=== PATIENT | female | born 1975 | race Caucasian/White ===

== ENCOUNTER 2016-02-29 18:54 | Emergency (ER) | payer OTHER ==
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
--- NOTE | 2016-02-29 20:32 | ED CLINICAL REPORT ---
Clinical Report - Physicians/Mid Levels [facility] [address] [place] [address] 02/29/2016 18:54 Patient: SUMI THIBODEAUX Time Seen: 21:00 Feb 29 2016. Arrived- By private vehicle. Historian- patient. HISTORY OF PRESENT ILLNESS Chief Complaint: BACK PAIN. It is described as being mild and in the area of the lower lumbar spine. The quality is noted to be "pain" and similar to prior episodes. Onset- years and it is still present. No bowel dysfunction or sensory loss. Additional history - reports h;o chronic pain, [facility] closed, has not established new pcp, out of meds 11 days, sx are not new. no new injury. Patient denies an injury. REVIEW OF SYSTEMS No fever, chills, difficulty with urination, urinary frequency or hematuria. No sore throat or difficulty breathing. All systems otherwise negative, except as recorded above. PAST HISTORY Problems: Carpal Tunnel Syndrome. Viral Disease. Abdominal Pain. Immunizations. LNMP - Last Normal Menstrual Period. Asthma. Mood Disorder. Depression. Back Pain. Additional Surgeries: Hysterectomy. Left hand surgery . Tonsillectomy. Tympanostomy Tubes. Medications: Valium Oral. Albuterol Sulfate HFA Inhalation. TraZODone HCl Oral. RisperDAL Oral. BusPIRone HCl Oral. DULoxetine HCl Oral. Allergies: Hydrocodone. SOCIAL HISTORY Smoker- current status unknown. History of drug use: marijuana. ADDITIONAL NOTES The nursing notes have been reviewed. PHYSICAL EXAM Vital Signs: 02/29/2016 19:45 BP: 114/75. HR: 88. RR: 16. O2 saturation: 98%. Temp: 98.8 F. Appearance: Alert. No acute distress. HEENT: Normal external inspection. Neck: Normal inspection. Neck nontender. CVS: Heart sounds normal. Respiratory: No respiratory distress. No respiratory distress. Breath sounds normal. No rales. Abdomen: No visible injury. Soft. Bowel sounds normal. No rebound tenderness. The bowel sounds are not abnormal. Back: Normal inspection. No tenderness. Painless ROM. Vertebral point tenderness. Skin: Skin warm. Normal skin color. Extremities: Extremities exhibit normal ROM. No lower extremity edema. Extremities nontender. No calf tenderness. Neuro: Oriented X 3. PROGRESS AND PROCEDURES Course of Care: There are no risks for spinal epidural abscess or hematoma as patient is without any risk factors such as IVDA or evidence of active infection, no midline tenderness to percussion. Hence I do not feel emergent imaging with an MRI is indicated. However I did discuss with the patient that if these symptoms develop, or if the pain does not resolve an MRI may need to be done outpatient, or in the ED if symptoms worsen acutely or new onset of the above mentioned symptoms develop. Patient is stable. Symptoms better. Patient/family counseled. Disposition: Discharged. CLINICAL IMPRESSION Chronic lumbar back pain. INSTRUCTIONS ([address], [place] [address] < 1 mi ). Prescription Medications: Percocet 5 mg/325 mg: take 1 tablet orally every 6 hours as needed for pain. Dispense twenty (20). No refill. Substitution is permissible. Follow-up: Follow up with doctor call [facility]. (Electronically signed by Archana Pulliam P.A.-C 02/29/2016 21:03)
--- NOTE | 2016-02-29 20:32 | ED ORDER SUMMARY ---
..... Patient: SUMI THIBODEAUX [facility] VisitID: [id number] [address] [place] [address] 40y, F Registration Date/Time: 02/29/2016 ORDER SHEET Weight: 48.5 kg (stated) Allergies: Hydrocodone GENERAL ORDERS: MEDICATION ORDERS: Percocet PO 5/325 mg (HIGH ALERT MEDICATION, NOW) (19:51 02/29/2016 Jyoti P.A.-Ayush) (Ack 20:06 Sabinoivesuellen R.N.) (20:08 TierneyQuivey R.N.) IV FLUIDS: ORDER SHEET NOTES: [Electronically signed by Vanda Taylor R.N. (20:40 02/29/2016)] [Electronically signed by Archana Pulliam P.A.-C (21:03 02/29/2016)] [Electronically locked/signed by Vanda Taylor R.N. (20:40 02/29/2016)]
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
--- NOTE | 2016-02-29 20:32 | ED CLINICAL REPORT ---
Clinical Report - Physicians/Mid Levels [facility] [address] [place] [address] 02/29/2016 18:54 Patient: SUMI THIBODEAUX Time Seen: 21:00 Feb 29 2016. Arrived- By private vehicle. Historian- patient. HISTORY OF PRESENT ILLNESS Chief Complaint: BACK PAIN. It is described as being mild and in the area of the lower lumbar spine. The quality is noted to be "pain" and similar to prior episodes. Onset- years and it is still present. No bowel dysfunction or sensory loss. Additional history - reports h;o chronic pain, [facility] closed, has not established new pcp, out of meds 11 days, sx are not new. no new injury. Patient denies an injury. REVIEW OF SYSTEMS No fever, chills, difficulty with urination, urinary frequency or hematuria. No sore throat or difficulty breathing. All systems otherwise negative, except as recorded above. PAST HISTORY Problems: Carpal Tunnel Syndrome. Viral Disease. Abdominal Pain. Immunizations. LNMP - Last Normal Menstrual Period. Asthma. Mood Disorder. Depression. Back Pain. Additional Surgeries: Hysterectomy. Left hand surgery . Tonsillectomy. Tympanostomy Tubes. Medications: Valium Oral. Albuterol Sulfate HFA Inhalation. TraZODone HCl Oral. RisperDAL Oral. BusPIRone HCl Oral. DULoxetine HCl Oral. Allergies: Hydrocodone. SOCIAL HISTORY Smoker- current status unknown. History of drug use: marijuana. ADDITIONAL NOTES The nursing notes have been reviewed. PHYSICAL EXAM Vital Signs: 02/29/2016 19:45 BP: 114/75. HR: 88. RR: 16. O2 saturation: 98%. Temp: 98.8 F. Appearance: Alert. No acute distress. HEENT: Normal external inspection. Neck: Normal inspection. Neck nontender. CVS: Heart sounds normal. Respiratory: No respiratory distress. No respiratory distress. Breath sounds normal. No rales. Abdomen: No visible injury. Soft. Bowel sounds normal. No rebound tenderness. The bowel sounds are not abnormal. Back: Normal inspection. No tenderness. Painless ROM. Vertebral point tenderness. Skin: Skin warm. Normal skin color. Extremities: Extremities exhibit normal ROM. No lower extremity edema. Extremities nontender. No calf tenderness. Neuro: Oriented X 3. PROGRESS AND PROCEDURES Course of Care: There are no risks for spinal epidural abscess or hematoma as patient is without any risk factors such as IVDA or evidence of active infection, no midline tenderness to percussion. Hence I do not feel emergent imaging with an MRI is indicated. However I did discuss with the patient that if these symptoms develop, or if the pain does not resolve an MRI may need to be done outpatient, or in the ED if symptoms worsen acutely or new onset of the above mentioned symptoms develop. Patient is stable. Symptoms better. Patient/family counseled. Disposition: Discharged. CLINICAL IMPRESSION Chronic lumbar back pain. INSTRUCTIONS ([address], [place] [address] < 1 mi ). Prescription Medications: Percocet 5 mg/325 mg: take 1 tablet orally every 6 hours as needed for pain. Dispense twenty (20). No refill. Substitution is permissible. Follow-up: Follow up with doctor call [facility]. (Electronically signed by Archana Pulliam P.A.-C 02/29/2016 21:03)
--- NOTE | 2016-02-29 20:32 | ED ORDER SUMMARY ---
..... Patient: SUMI THIBODEAUX OrderSheet [facility] VisitID: [id number] [address] [place] [address] 40y, F Registration Date/Time: 02/29/2016 ORDER SHEET Weight: 48.5 kg (stated) Allergies: Hydrocodone GENERAL ORDERS: MEDICATION ORDERS: Percocet PO 5/325 mg (HIGH ALERT MEDICATION, NOW) (19:51 02/29/2016 Jyoti P.A.-Ayush) (Ack 20:06 Sabinoivesuellen R.N.) (20:08 TierneyQuivey R.N.) IV FLUIDS: ORDER SHEET NOTES: [Electronically signed by Vanda Taylor R.N. (20:40 02/29/2016)] [Electronically signed by Archana Pulliam P.A.-C (21:03 02/29/2016)] [Electronically locked/signed by Vanda Taylor R.N. (20:40 02/29/2016)]
--- NOTE | 2016-02-29 21:04 | ED MED RECONCILIATION SUMMARY ---
Patient: SUMI THIBODEAUX Medication Reconciliation Report [facility] VisitID: [id number] [address] [place] [address] 40y, F Registration Date/Time: 02/29/2016 Weight: 48.5 kg Height/Length: 61 in. BMI: 20.2 ALLERGIES: Hydrocodone The patient's Home Medications are listed below: THE FOLLOWING MEDICATIONS NEED TO BE RECONCILED: Albuterol Sulfate HFA Inhalation BusPIRone HCl Oral DULoxetine HCl Oral RisperDAL Oral TraZODone HCl Oral Valium Oral The source(s) of the original Home Medication information: patient The following Medications were given to the patient in the Emergency Department: Percocet [PO] PO 1 tab, administered: 02/29/2016 8:08:00 PM The following Medications were prescribed to the patient: Percocet 5 mg/325 mg: take 1 tablet orally every 6 hours as needed for pain. Dispense twenty (20). No refill. Substitution is permissible. -- Archana Pulliam, PLydiaALydia-C
--- NOTE | 2016-02-29 21:04 | ED MED RECONCILIATION SUMMARY ---
Patient: SUMI THIBODEAUX Medication Reconciliation Report [facility] VisitID: [id number] [address] [place] [address] 40y, F Registration Date/Time: 02/29/2016 Weight: 48.5 kg Height/Length: 61 in. BMI: 20.2 ALLERGIES: Hydrocodone The patient's Home Medications are listed below: THE FOLLOWING MEDICATIONS NEED TO BE RECONCILED: Albuterol Sulfate HFA Inhalation BusPIRone HCl Oral DULoxetine HCl Oral RisperDAL Oral TraZODone HCl Oral Valium Oral The source(s) of the original Home Medication information: patient The following Medications were given to the patient in the Emergency Department: Percocet [PO] PO 1 tab, administered: 02/29/2016 8:08:00 PM The following Medications were prescribed to the patient: Percocet 5 mg/325 mg: take 1 tablet orally every 6 hours as needed for pain. Dispense twenty (20). No refill. Substitution is permissible. -- Archana Pulliam, PLydiaALydia-C
--- NOTE | 2016-02-29 21:04 | ED DISCHARGE INSTRUCTIONS ---
Patient: SUMI THIBODEAUX General Instructions [facility] VisitID: [id number] [address] [place] [address] 40y, F Registration Date/Time: 02/29/2016 Chronic lumbar back pain. INSTRUCTIONS ([address] [place] [address] < 1 mi ). Prescription Medications: Percocet 5 mg/325 mg: take 1 tablet orally every 6 hours as needed for pain. Dispense twenty (20). No refill. Substitution is permissible. Follow-up: Follow up with doctor call [facility]. ADDITIONAL INFORMATION Back Pain [Acute Or Chronic] Back pain is usually caused by an injury to the muscles or ligaments of the spine. Sometimes the disks that separate each bone in the spine may bulge and cause pain by pressing on a nearby nerve. Back pain may also appear after a sudden twisting/bending force (such as in a car accident), after a simple awkward movement, or lifting something heavy with poor body positioning. In either case, muscle spasm is often present and adds to the pain. Acute back pain usually gets better in one to two weeks. Back pain related to disk disease, arthritis in the spinal joints or spinal stenosis (narrowing of the spinal canal) can become chronic and last for months or years. Unless you had a physical injury (for example, a car accident or fall) X-rays are usually not ordered for the initial evaluation of back pain. If pain continues and does not respond to medical treatment, x-rays and other tests may be performed at a later time. Home Care: You may need to stay in bed the first few days. But, as soon as possible, begin sitting or walking to avoid problems with prolonged bed rest (muscle weakness, worsening back stiffness and pain, blood clots in the legs). When in bed, try to find a position of comfort. A firm mattress is best. Try lying flat on your back with pillows under your knees. You can also try lying on your side with your knees bent up towards your chest and a pillow between your knees. Avoid prolonged sitting. This puts more stress on the lower back than standing or walking. During the first two days after injury, apply an ICE PACK to the painful area for 20 minutes every 2-4 hours. This will reduce swelling and pain. HEAT (hot shower, hot bath or heating pad) works well for muscle spasm. You can start with ice, then switch to heat after two days. Some patients feel best alternating ice and heat treatments. Use the one method that feels the best to you. You may use acetaminophen (Tylenol) or ibuprofen (Motrin, Advil) to control pain, unless another pain medicine was prescribed. [NOTE: If you have chronic liver or kidney disease or ever had a stomach ulcer or GI bleeding, talk with your doctor before using these medicines.] Be aware of safe lifting methods and do not lift anything over 15 pounds until all the pain is gone. Follow Up with your doctor or this facility if your symptoms do not start to improve after one week. Physical therapy may be needed. [NOTE: If X-rays were taken, they will be reviewed by a radiologist. You will be notified of any new findings that may affect your care.] Get Prompt Medical Attention if any of the following occur: Pain becomes worse or spreads to your legs Weakness or numbness in one or both legs Loss of bowel or bladder control Numbness in the groin or genital area Oxycodone Hydrochloride, Acetaminophen Oral tablet What is this medicine? ACETAMINOPHEN; OXYCODONE (a set a THEODORE rashad fen; ox i KOE done) is a pain reliever. It is used to treat mild to moderate pain. How should I use this medicine? Take this medicine by mouth with a full glass of water. Follow the directions on the prescription label. Take your medicine at regular intervals. Do not take your medicine more often than directed. Talk to your irrigation laborer regarding the use of this medicine in children. Special care may be needed. Patients over 65 years old may have a stronger reaction and need a smaller dose. What side effects may I notice from receiving this medicine? Side effects that you should report to your doctor or health critical care specialist as soon as possible: allergic reactions like skin rash, itching or hives, swelling of the face, lips, or tongue breathing difficulties, wheezing confusion light headedness or fainting spells severe stomach pain yellowing of the skin or the whites of the eyes Side effects that usually do not require medical attention (report to your doctor or health critical care specialist if they continue or are bothersome): dizziness drowsiness nausea vomiting What may interact with this medicine? alcohol antihistamines barbiturates like amobarbital, butalbital, butabarbital, methohexital, pentobarbital, phenobarbital, thiopental, and secobarbital benztropine drugs for bladder problems like solifenacin, trospium, oxybutynin, tolterodine, hyoscyamine, and methscopolamine drugs for breathing problems like ipratropium and tiotropium drugs for certain stomach or intestine problems like propantheline, homatropine methylbromide, glycopyrrolate, atropine, belladonna, and dicyclomine general anesthetics like etomidate, ketamine, nitrous oxide, propofol, desflurane, enflurane, halothane, isoflurane, and sevoflurane medicines for depression, anxiety, or psychotic disturbances medicines for sleep muscle relaxants naltrexone narcotic medicines (opiates) for pain phenothiazines like perphenazine, thioridazine, chlorpromazine, mesoridazine, fluphenazine, prochlorperazine, promazine, and trifluoperazine scopolamine tramadol trihexyphenidyl What if I miss a dose? If you miss a dose, take it as soon as you can. If it is almost time for your next dose, take only that dose. Do not take double or extra doses. Where should I keep my medicine? Keep out of the reach of children. This medicine can be abused. Keep your medicine in a safe place to protect it from theft. Do not share this medicine with anyone. Selling or giving away this medicine is dangerous and against the law. Store at room temperature between 20 and 25 degrees C (68 and 77 degrees F). Keep container tightly closed. Protect from light. This medicine may cause accidental overdose and if it is taken by other adults, children, or pets. Flush any unused medicine down the toilet to reduce the chance of harm. Do not use the medicine after the expiration date. What should I tell my health care provider before I take this medicine? They need to know if you have any of these conditions: brain tumor Crohn's disease, inflammatory bowel disease, or ulcerative colitis drink more than 3 alcohol containing drinks per day drug abuse or addiction head injury heart or circulation problems kidney disease or problems going to the bathroom liver disease lung disease, asthma, or breathing problems an unusual or allergic reaction to acetaminophen, oxycodone, other opioid analgesics, other medicines, foods, dyes, or preservatives or trying to get breast-feeding What should I watch for while using this medicine? Tell your doctor or health critical care specialist if your pain does not go away, if it gets worse, or if you have new or a different type of pain. You may develop tolerance to the medicine. Tolerance means that you will need a higher dose of the medication for pain relief. Tolerance is normal and is expected if you take this medicine for a long time. Do not suddenly stop taking your medicine because you may develop a severe reaction. Your body becomes used to the medicine. This does NOT mean you are addicted. Addiction is a behavior related to getting and using a drug for a non-medical reason. If you have pain, you have a medical reason to take pain medicine. Your doctor will tell you how much medicine to take. If your doctor wants you to stop the medicine, the dose will be slowly lowered over time to avoid any side effects. You may get drowsy or dizzy. Do not drive, use machinery, or do anything that needs mental alertness until you know how this medicine affects you. Do not stand or sit up quickly, especially if you are an older patient. This reduces the risk of dizzy or fainting spells. Alcohol may interfere with the effect of this medicine. Avoid alcoholic drinks. There are different types of narcotic medicines (opiates) for pain. If you take more than one type at the same time, you may have more side effects. Give your health care provider a list of all medicines you use. Your doctor will tell you how much medicine to take. Do not take more medicine than directed. Call emergency for help if you have problems breathing. The medicine will cause constipation. Try to have a bowel movement at least every 2 to 3 days. If you do not have a bowel movement for 3 days, call your doctor or health critical care specialist. Do not take Tylenol (acetaminophen) or medicines that have acetaminophen with this medicine. Too much acetaminophen can be very dangerous. Many nonprescription medicines contain acetaminophen. Always read the labels carefully to avoid taking more acetaminophen. You have been given the following additional information: Back Pain (Acute Or Chronic) Oxycodone Hydrochloride, Acetaminophen Oral tablet (Electronically signed by Archana Pulliam P.A.-C 02/29/2016 21:03)
--- NOTE | 2016-02-29 21:04 | ED DISCHARGE INSTRUCTIONS ---
Patient: SUMI THIBODEAUX General Instructions [facility] VisitID: [id number] [address] [place] [address] 40y, F Registration Date/Time: 02/29/2016 Chronic lumbar back pain. INSTRUCTIONS ([address] [place] [address] < 1 mi ). Prescription Medications: Percocet 5 mg/325 mg: take 1 tablet orally every 6 hours as needed for pain. Dispense twenty (20). No refill. Substitution is permissible. Follow-up: Follow up with doctor call [facility]. ADDITIONAL INFORMATION Back Pain [Acute Or Chronic] Back pain is usually caused by an injury to the muscles or ligaments of the spine. Sometimes the disks that separate each bone in the spine may bulge and cause pain by pressing on a nearby nerve. Back pain may also appear after a sudden twisting/bending force (such as in a car accident), after a simple awkward movement, or lifting something heavy with poor body positioning. In either case, muscle spasm is often present and adds to the pain. Acute back pain usually gets better in one to two weeks. Back pain related to disk disease, arthritis in the spinal joints or spinal stenosis (narrowing of the spinal canal) can become chronic and last for months or years. Unless you had a physical injury (for example, a car accident or fall) X-rays are usually not ordered for the initial evaluation of back pain. If pain continues and does not respond to medical treatment, x-rays and other tests may be performed at a later time. Home Care: You may need to stay in bed the first few days. But, as soon as possible, begin sitting or walking to avoid problems with prolonged bed rest (muscle weakness, worsening back stiffness and pain, blood clots in the legs). When in bed, try to find a position of comfort. A firm mattress is best. Try lying flat on your back with pillows under your knees. You can also try lying on your side with your knees bent up towards your chest and a pillow between your knees. Avoid prolonged sitting. This puts more stress on the lower back than standing or walking. During the first two days after injury, apply an ICE PACK to the painful area for 20 minutes every 2-4 hours. This will reduce swelling and pain. HEAT (hot shower, hot bath or heating pad) works well for muscle spasm. You can start with ice, then switch to heat after two days. Some patients feel best alternating ice and heat treatments. Use the one method that feels the best to you. You may use acetaminophen (Tylenol) or ibuprofen (Motrin, Advil) to control pain, unless another pain medicine was prescribed. [NOTE: If you have chronic liver or kidney disease or ever had a stomach ulcer or GI bleeding, talk with your doctor before using these medicines.] Be aware of safe lifting methods and do not lift anything over 15 pounds until all the pain is gone. Follow Up with your doctor or this facility if your symptoms do not start to improve after one week. Physical therapy may be needed. [NOTE: If X-rays were taken, they will be reviewed by a radiologist. You will be notified of any new findings that may affect your care.] Get Prompt Medical Attention if any of the following occur: Pain becomes worse or spreads to your legs Weakness or numbness in one or both legs Loss of bowel or bladder control Numbness in the groin or genital area Oxycodone Hydrochloride, Acetaminophen Oral tablet What is this medicine? ACETAMINOPHEN; OXYCODONE (a set a THEODORE rashad fen; ox i KOE done) is a pain reliever. It is used to treat mild to moderate pain. How should I use this medicine? Take this medicine by mouth with a full glass of water. Follow the directions on the prescription label. Take your medicine at regular intervals. Do not take your medicine more often than directed. Talk to your security intern regarding the use of this medicine in children. Special care may be needed. Patients over 65 years old may have a stronger reaction and need a smaller dose. What side effects may I notice from receiving this medicine? Side effects that you should report to your doctor or health farm or ranch animal caretaker as soon as possible: allergic reactions like skin rash, itching or hives, swelling of the face, lips, or tongue breathing difficulties, wheezing confusion light headedness or fainting spells severe stomach pain yellowing of the skin or the whites of the eyes Side effects that usually do not require medical attention (report to your doctor or health farm or ranch animal caretaker if they continue or are bothersome): dizziness drowsiness nausea vomiting What may interact with this medicine? alcohol antihistamines barbiturates like amobarbital, butalbital, butabarbital, methohexital, pentobarbital, phenobarbital, thiopental, and secobarbital benztropine drugs for bladder problems like solifenacin, trospium, oxybutynin, tolterodine, hyoscyamine, and methscopolamine drugs for breathing problems like ipratropium and tiotropium drugs for certain stomach or intestine problems like propantheline, homatropine methylbromide, glycopyrrolate, atropine, belladonna, and dicyclomine general anesthetics like etomidate, ketamine, nitrous oxide, propofol, desflurane, enflurane, halothane, isoflurane, and sevoflurane medicines for depression, anxiety, or psychotic disturbances medicines for sleep muscle relaxants naltrexone narcotic medicines (opiates) for pain phenothiazines like perphenazine, thioridazine, chlorpromazine, mesoridazine, fluphenazine, prochlorperazine, promazine, and trifluoperazine scopolamine tramadol trihexyphenidyl What if I miss a dose? If you miss a dose, take it as soon as you can. If it is almost time for your next dose, take only that dose. Do not take double or extra doses. Where should I keep my medicine? Keep out of the reach of children. This medicine can be abused. Keep your medicine in a safe place to protect it from theft. Do not share this medicine with anyone. Selling or giving away this medicine is dangerous and against the law. Store at room temperature between 20 and 25 degrees C (68 and 77 degrees F). Keep container tightly closed. Protect from light. This medicine may cause accidental overdose and if it is taken by other adults, children, or pets. Flush any unused medicine down the toilet to reduce the chance of harm. Do not use the medicine after the expiration date. What should I tell my health care provider before I take this medicine? They need to know if you have any of these conditions: brain tumor Crohn's disease, inflammatory bowel disease, or ulcerative colitis drink more than 3 alcohol containing drinks per day drug abuse or addiction head injury heart or circulation problems kidney disease or problems going to the bathroom liver disease lung disease, asthma, or breathing problems an unusual or allergic reaction to acetaminophen, oxycodone, other opioid analgesics, other medicines, foods, dyes, or preservatives or trying to get breast-feeding What should I watch for while using this medicine? Tell your doctor or health farm or ranch animal caretaker if your pain does not go away, if it gets worse, or if you have new or a different type of pain. You may develop tolerance to the medicine. Tolerance means that you will need a higher dose of the medication for pain relief. Tolerance is normal and is expected if you take this medicine for a long time. Do not suddenly stop taking your medicine because you may develop a severe reaction. Your body becomes used to the medicine. This does NOT mean you are addicted. Addiction is a behavior related to getting and using a drug for a non-medical reason. If you have pain, you have a medical reason to take pain medicine. Your doctor will tell you how much medicine to take. If your doctor wants you to stop the medicine, the dose will be slowly lowered over time to avoid any side effects. You may get drowsy or dizzy. Do not drive, use machinery, or do anything that needs mental alertness until you know how this medicine affects you. Do not stand or sit up quickly, especially if you are an older patient. This reduces the risk of dizzy or fainting spells. Alcohol may interfere with the effect of this medicine. Avoid alcoholic drinks. There are different types of narcotic medicines (opiates) for pain. If you take more than one type at the same time, you may have more side effects. Give your health care provider a list of all medicines you use. Your doctor will tell you how much medicine to take. Do not take more medicine than directed. Call emergency for help if you have problems breathing. The medicine will cause constipation. Try to have a bowel movement at least every 2 to 3 days. If you do not have a bowel movement for 3 days, call your doctor or health farm or ranch animal caretaker. Do not take Tylenol (acetaminophen) or medicines that have acetaminophen with this medicine. Too much acetaminophen can be very dangerous. Many nonprescription medicines contain acetaminophen. Always read the labels carefully to avoid taking more acetaminophen. You have been given the following additional information: Back Pain (Acute Or Chronic) Oxycodone Hydrochloride, Acetaminophen Oral tablet (Electronically signed by Archana Pulliam P.A.-C 02/29/2016 21:03)
--- NOTE | 2016-02-29 21:04 | ED MAR SUMMARY ---
..... Medication Administration Record [facility] [address] [place] [address] Patient: SUMI THIBODEAUX Visit ID: [id number] 40y, F Weight: 48.5 kg Height/Length: 61 in BMI: 20.2 ALLERGIES: Hydrocodone Given 20:08 02/29/2016 Abel Armando R.N. Medication Administered: PERCOCET [PO] (OXYCODONE-ACETAMINOPHEN), Dose: 1 tab 5/325 mg Tablets PO. Medication Ordered: Percocet PO 5/325 mg (HIGH ALERT MEDICATION, NOW).
--- NOTE | 2016-02-29 21:04 | ED MAR SUMMARY ---
..... Medication Administration Record [facility] [address] [place] [address] Patient: SUMI THIBODEAUX Visit ID: [id number] 40y, F Weight: 48.5 kg Height/Length: 61 in BMI: 20.2 ALLERGIES: Hydrocodone Given 20:08 02/29/2016 Abel Armando R.N. Medication Administered: PERCOCET [PO] (OXYCODONE-ACETAMINOPHEN), Dose: 1 tab 5/325 mg Tablets PO. Medication Ordered: Percocet PO 5/325 mg (HIGH ALERT MEDICATION, NOW).
== END 2016-02-29 20:40 | disposition home or self-care (01) ==
LOC: ED SRH 18:54
DX: M54.5 Low back pain (principal); G89.29 Other chronic pain; J45.909 Unspecified asthma, uncomplicated; Z79.52 Long term (current) use of systemic steroids; Z88.5 Allergy status to narcotic agent

== ENCOUNTER → 2016-04-14 | Emergency (ER) | payer OTHER ==
--- NOTE | 2016-04-14 17:49 | ED ORDER SUMMARY ---
..... Patient: SUMI THIBODEAUX OrderSheet [facility] VisitID: [id number] [address] [place] [address] 41y, F Registration Date/Time: 04/14/2016 ORDER SHEET Weight: 52.1 kg (stated) Allergies: Hydrocodone GENERAL ORDERS: UA-Culture if indicated Urgent (16:39 04/14/2016 David ELLSWORTH) (Ack 16:42 LTapper) (17:14 LWhalen R.N.) Urine Drug Screen Urgent (16:39 04/14/2016 David ELLSWORTH) (Ack 16:42 LTapper) (17:14 LWhalen R.N.) MEDICATION ORDERS: Toradol IM 60 mg (NOW) (16:58 04/14/2016 David ELLSWORTH) (17:32 LWhalen R.N.) Tramadol PO 50 mg (NOW) (16:58 04/14/2016 David ELLSWORTH) (17:33 LWhalen R.N.) Soma PO 350 mg (NOW) (16:58 04/14/2016 David ELLSWORTH) (17:32 LWhalen R.N.) IV FLUIDS: ORDER SHEET NOTES: [Electronically signed by Noris Caraballo R.N. (18:05 04/14/2016)] [Electronically signed by Ashok Mccarthy MD (20:25 04/14/2016)] [Electronically locked/signed by Noris Caraballo R.N. (18:05 04/14/2016)]
--- NOTE | 2016-04-14 17:49 | ED NURSING NOTES ---
Clinical Report - Nurses [facility] [address] [place] [address] 04/14/2016 16:09 Patient: SUMI THIBODEAUX TRIAGE Triage time 16:28 Apr 14 2016. Acuity: LEVEL 3. Chief Complaint: BACK PAIN. YUVAL COMA SCORE: [place] Coma Scale: 15- eyes open spontaneously (4); best verbal response- oriented x 4 (5); best motor response- obeys commands (6). --16:35 Arnulfo Chinchilla R.N. 16:27 04/14/16. BP: 111/62. HR: 86. RR: 20. O2 saturation: 99%. Temp: 98.1 F. Pain level now 6/10. --16:35 Arnulfo Chinchilla R.N. Weight: 52.1 kg stated. Height/Length: 61 inches Per Patient. BMI: 21.7. --16:34 Arnulfo Chinchilla R.N. Medications BusPIRone HCl Oral. --16:31 Arnulfo Chinchilla R.N. Albuterol Sulfate HFA Inhalation. --16:31 Arnulfo Chinchilla R.N. Gabapentin Oral. --16:31 Arnulfo Chinchilla R.N. Asmanex 7 Metered Doses Inhalation. --16:32 Arnulfo Chinchilla R.N. Estridial patch. --16:32 Arnulfo Chinchilla R.N. Qvetiapine. --16:33 Arnulfo Chinchilla R.N. Allergies Hydrocodone. --16:31 Arnulfo Chinchilla R.N. History Arrived by private vehicle. Historian: patient. Accompanied by family. Primary physician (). Onset. (3 days). ( States has been having this problem for three days now. Has a long history of back pain but this is different per pt. Back feels tight like locked up and pains going down legs and aching hips.). She has had weakness (from pain). She has had mild trouble walking. The patient has been limping when trying to walk. No numbness, tingling, fever or extremity pain. 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 Took ibuprofen. PAST MEDICAL HX: Tetanus status: up-to-date. SOCIAL HX: Current every day light tobacco smoker (cigarette)- less than 1/2 a pack per day. History of drug use: marijuana. No alcohol use. SELF HARM ASSESSMENT: A self harm assessment was performed. The patient answered "no" to the question "Have you recently felt down, depressed, or hopeless?" and "Do you have thoughts of harming or killing yourself?". FALL RISK ASSESSMENT: Fall risk assessment completed. No fall risk identified. NUTRITIONAL RISK ASSESSMENT: The nutritional risk assessment revealed no deficiencies. FUNCTIONAL ASSESSMENT: Functional assessment: no impairments noted. LEARNING NEEDS ASSESSMENT: The learning needs assessment revealed no barriers. ABUSE ASSESSMENT: Abuse assessment: (yes) The patient was asked "Do you feel safe in your home?". SKIN INTEGRITY ASSESSMENT: Skin integrity risk assessment completed. No skin integrity risk identified. --16:35 Arnulfo Chinchilla R.N. PROBLEMS: Carpal Tunnel Syndrome. Viral Disease. Abdominal Pain. Immunizations. LNMP - Last Normal Menstrual Period. Asthma. Mood Disorder. Depression. Back Pain. --16:33 Arnulfo Chinchilla R.N. ADDITIONAL SURGERIES: Hysterectomy. Left hand surgery . Tonsillectomy. Tympanostomy Tubes. --16:33 Arnulfo Chinchilla R.N. Interventions ID band on patient. --16:35 Arnulfo Chinchilla R.N. PHYSICAL ASSESSMENT Ambulatory to room. GENERAL / NEURO / PSYCH: Alert. Oriented X 4. Appears in pain. RESPIRATORY: Respirations not labored. Chest nontender. Breath sounds within normal limits. CVS: Normal heart rate and rhythm. Capillary refill less than 2 seconds. GI / : Abdomen soft. Bowel sounds within normal limits. ( Last BM this am). EXTREMITIES: Sensation intact in extremities. ROM of extremities within normal limits. BACK: Normal inspection of the neck and back. --16:35 Arnulfo Chinchilla R.N. NURSING PROGRESS NOTES The plan of care for this patient has been created. Pulse oximeter and NIBP monitor placed on patient. Patient gowned. Reassurance given. Call light placed in reach. Side rails up x 1. Bed placed in lowest position. Brakes of bed on. --16:36 Arnulfo Chinchilla R.N. 17:32 04/14/2016 Toradol (Ketorolac Tromethamine) IM 60 mg given. Given in the right gluteus ryan and left gluteus ryan (split dose). Allergies verified and confirmed 5 rights. --17:32 Arnulfo Chinchilla R.N. 17:32 04/14/2016 Soma (Carisoprodol) PO Capsules 350 mg given. Allergies verified, confirmed 5 rights and sedative warning given to the patient. --17:32 Arnulfo Chinchilla R.N. 17:33 04/14/2016 Tramadol (TraMADol HCl) PO Capsules 50 mg given. Allergies verified, confirmed 5 rights and sedative warning given to the patient. --17:33 Arnulfo Chinchilla R.N. DISPOSITION / DISCHARGE 18:00 04/14/16. BP: 105/74. HR: 92. RR: 18. O2 saturation: 97%. --18:03 Noris Caraballo R.N. 18:02. Condition at departure: improved. No learning barriers present. Discharge instructions provided and reviewed with the patient. Reviewed referral to family practice for followup. Verbalized understanding. Written instructions provided. The patient was discharged home. She left the Emergency Department ambulatory and via private vehicle. --18:04 Noris Caraballo R.N. Locked/Released at 04/14/2016 18:05 by Noris Caraballo R.N.
--- NOTE | 2016-04-14 17:49 | ED CLINICAL REPORT ---
Clinical Report - Physicians/Mid Levels [facility] [address] [place] [address] 04/14/2016 16:09 Patient: SUMI THIBODEAUX Time Seen: 16:40 Apr 14 2016. Arrived- By private vehicle. Historian- patient. CPT: ER phys charges level 4 (#[id number]). HISTORY OF PRESENT ILLNESS Chief Complaint: BACK PAIN. 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 ( States has been having this problem for three days now. Has a long history of back pain but this is different per pt. Back feels tight like locked up and pains going down legs and aching hips.). She has had weakness (from pain). She has had mild trouble walking. The patient has been limping when trying to walk. No numbness, tingling, fever or extremity pain. and it is still present. It is described as being moderate in degree and in the area of the lower lumbar spine and radiating to the low back, to the right thigh and to the left thigh. The quality is noted to be aching, "pain" and similar to prior episodes. Modifying factors- worsened by sitting, standing or bending over. Not relieved by anything. No bladder dysfunction, bowel dysfunction, sensory loss or motor loss. Additional history - Has been referred to pain clinic but no one has an opening at this time. Pt just moved to the area and has only seen PCP twice. This PCP has not written for pain medicaitons. No saddle paresthesias. Patient denies an injury. Similar symptoms previously: As bad. Recent medical care: Not recently seen/assessed. REVIEW OF SYSTEMS No fever, chills, difficulty with urination, urinary frequency or hematuria. No skin rash, headache, sore throat, cough or difficulty breathing. No chest pain, abdominal pain, nausea, vomiting or black stools. All systems otherwise negative, except as recorded above. PAST HISTORY The patient has had prior back pain. Has had moderate lumbar intervertebral disc disease " 2 herniated discs on MRI". Carpal Tunnel Syndrome. Viral Disease. Abdominal Pain. Immunizations. LNMP - Last Normal Menstrual Period. Asthma. Mood Disorder. Depression. Back Pain. - Fibromyalgia ADDITIONAL SURGERIES: Hysterectomy. Left hand surgery . Tonsillectomy. Tympanostomy Tubes. Medications: Qvetiapine. Estridial patch. Asmanex 7 Metered Doses Inhalation. Gabapentin Oral. Albuterol Sulfate HFA Inhalation. BusPIRone HCl Oral. Allergies: Hydrocodone. SOCIAL HISTORY Heavy tobacco smoker (cigarette)- less than 1 pack per day. History of drug use: marijuana. No alcohol use. ADDITIONAL NOTES The nursing notes have been reviewed. PHYSICAL EXAM Vital Signs: 04/14/2016 16:27 BP: 111/62. HR: 86. RR: 20. O2 saturation: 99%. Temp: 98.1 F. Appearance: Alert. Anxious. Patient in mild distress. HEENT: Normal external inspection. Eyes: Pupils equal, round and reactive to light. ENT: Ears normal. Pharynx normal. Neck: Normal inspection. Neck nontender. Painless ROM. CVS: Heart sounds normal. Pulses normal. Respiratory: No respiratory distress. Breath sounds normal. Abdomen: Soft and nontender. Bowel sounds normal. No organomegaly. No mass. Femoral pulses equal. Back: Muscle spasm of the back. Moderate soft tissue tenderness in the right lower and left lower lumbar area. Limited ROM in the back. No vertebral point tenderness or CVA tenderness. Skin: Skin warm. Normal skin color. No rash. Extremities: Extremities exhibit normal ROM. Extremities nontender. Neuro: Oriented X 3. Mood/affect normal. No motor deficit. No sensory deficit. Straight leg raising: positive on the right at 15 degrees and positive on the left at 15 degrees. Reflexes normal. Reflex exam: right biceps 2+, left biceps 2+, right patellar 2+, left patellar 2+, right Achilles 0 and left Achilles 0. No Babinski reflex. DTRs otherwise normal. No clonus present. LABS, X-RAYS, AND EKG Laboratory Tests: UA-Culture if indicated: (TIARA: 04/14/2016 16:40) ( MsgRcvd 04/14/2016 16:53) Final results Test Result Flag Units (Reference) URINE COLOR YELLOW URINE APPEARANCE CLEAR URINE GLUCOSE NEGATIVE (NEGATIVE) URINE BILIRUBIN NEGATIVE (NEGATIVE) URINE KETONE NEGATIVE (NEGATIVE) URINE SPECIFIC GRAVITY 1.020 (1.010-1.030) URINE PH 7.0 (5.0-8.0) URINE PROTEIN NEGATIVE (NEGATIVE) URINE UROBILINOGEN 0.2 EU/dL (0.2-1.0) URINE NITRITE NEGATIVE (NEGATIVE) URINE BLOOD NEGATIVE (NEGATIVE) URINE LEUK ESTERASE POSITIVE (NEGATIVE) URINE RBC NONE SEEN rbc/hpf (0-1) URINE WBC 10-15 wbc/hpf (0-1) URINE EPITHELIAL CELLS 1-3 EPI/hpf (0-5) URINE BACTERIA FEW (1+) (NONE SEEN) URINE COMMENT CULTURE INDICATED URINE CULTURES ARE SET-UP BASED ON THE FOLLOWING CRITERIA:POSITIVE NITRITEPOSITIVE LEUKOCYTE ESTERASEGREATER THAN 10 WHITE BLOOD CELLSMODERATE (2+) OR GREATER BACTERIA Urine Drug Screen: (TIARA: 04/14/2016 16:40) ( MsgRcvd 04/14/2016 17:02) Final results Test Result Flag Units (Reference) AMPHETAMINE/METHAMPHETAMINE NEGATIVE (NEGATIVE) BARBITURATE NEGATIVE (NEGATIVE) BENZODIAZEPINE NEGATIVE (NEGATIVE) CANNABINOID POSITIVE H (NEGATIVE) COCAINE NEGATIVE (NEGATIVE) ECSTASY NEGATIVE (NEGATIVE) METHADONE NEGATIVE (NEGATIVE) OPIATE NEGATIVE (NEGATIVE) The urine drug screen is a qualitative screening test fordrug overdose and abuse. All screen results should beconsidered as presumptive.Drugs screened for are as follows:BenzodiazepinesCocaineAmphetamines/MetamphetaminesTHC (Tetrahydrocannabinol)OpiatesBarbituratesEcstasyMethadonePositive results are unconfirmed. For confirmation, notifythe lab for the specimen to be sent to the reference lab.All confirmations must be performed by a differentmethodology.The ingestion of natural herbal and plant productscontaining Ephedra/Ephedra metabolites can produce in urineone or more substances capable of cross reacting withamphetamine/methamphetamine immunoassays. These testsprovide a preliminary result only. A more specificalternative chemical method must be used to obtain aconfirmed analytical result. . PROGRESS AND PROCEDURES Course of Care: Toradol 60 mg IM Soma 1 po Tramadol 50 mg po. Patient is stable. Symptoms much better. Patient is stable. Symptoms better. Patient/family counseled. Disposition: Discharged. Condition: stable. CLINICAL IMPRESSION Acute right sided and left sided lumbar radiculopathy. No sensory loss or motor deficit. Acute on chronic low back pain. INSTRUCTIONS Limit lifting. No strenuous activity. Warnings: SEDATIVE MEDICATION: You were given sedative medication during your visit. Do not drive or operate dangerous machinery. Your Current Medications: CONTINUE TAKING THE FOLLOWING MEDICATIONS: Albuterol Sulfate HFA Inhalation. Asmanex 7 Metered Doses Inhalation. BusPIRone HCl Oral. Estridial patch*. Gabapentin Oral. Qvetiapine*. Prescription Medications: Ibuprofen 600mg tablets: take 1 tablet orally every 8 hours as needed for pain. Dispense thirty (30). No refills. Soma 350 mg: Take 1 orally every 6 hours as needed for muscle spasm. Dispense twenty (20). No refills. Substitution is permissible. Ultram 50 mg tablets: take 1-2 orally every 6 hours as needed for pain. Dispense twenty (20). No refills. Substitution is permissible. Follow-up: Follow up with your doctor in one week. Call for an appointment. Understanding of the discharge instructions verbalized by patient. (Electronically signed by Ashok Mccarthy MD 04/14/2016 20:25)
--- NOTE | 2016-04-14 17:49 | ED ORDER SUMMARY ---
..... Patient: SUMI THIBODEAUX OrderSheet [facility] VisitID: [id number] [address] [place] [address] 41y, F Registration Date/Time: 04/14/2016 ORDER SHEET Weight: 52.1 kg (stated) Allergies: Hydrocodone GENERAL ORDERS: UA-Culture if indicated Urgent (16:39 04/14/2016 David ELLSWORTH) (Ack 16:42 LTapper) (17:14 LWhalen R.N.) Urine Drug Screen Urgent (16:39 04/14/2016 David ELLSWORTH) (Ack 16:42 LTapper) (17:14 LWhalen R.N.) MEDICATION ORDERS: Toradol IM 60 mg (NOW) (16:58 04/14/2016 David ELLSWORTH) (17:32 LWhalen R.N.) Tramadol PO 50 mg (NOW) (16:58 04/14/2016 David ELLSWORTH) (17:33 LWhalen R.N.) Soma PO 350 mg (NOW) (16:58 04/14/2016 David ELLSWORTH) (17:32 LWhalen R.N.) IV FLUIDS: ORDER SHEET NOTES: [Electronically signed by Noris Caraballo R.N. (18:05 04/14/2016)] [Electronically signed by Ashok Mccarthy MD (20:25 04/14/2016)] [Electronically locked/signed by Noris Caraballo R.N. (18:05 04/14/2016)]
--- NOTE | 2016-04-14 20:25 | ED MED RECONCILIATION SUMMARY ---
Patient: SUMI THIBODEAUX Medication Reconciliation Report [facility] VisitID: [id number] [address] [place] [address] 41y, F Registration Date/Time: 04/14/2016 Weight: 52.1 kg Height/Length: 61 in. BMI: 21.7 ALLERGIES: Hydrocodone The patient's Home Medications are listed below: CONTINUE TAKING THE FOLLOWING MEDICATIONS: Albuterol Sulfate HFA Inhalation Asmanex 7 Metered Doses Inhalation BusPIRone HCl Oral Estridial patch Gabapentin Oral Qvetiapine The source(s) of the original Home Medication information: Not obtained. The following Medications were given to the patient in the Emergency Department: Toradol [IM] IM 60 mg, administered: 04/14/2016 5:32:00 PM Soma [PO] PO 350 mg, administered: 04/14/2016 5:32:00 PM Tramadol [PO] PO 50 mg, administered: 04/14/2016 5:33:00 PM The following Medications were prescribed to the patient: Ibuprofen 600mg tablets: take 1 tablet orally every 8 hours as needed for pain. Dispense thirty (30). No refills. -- Ashok Mccarthy MD Soma 350 mg: Take 1 orally every 6 hours as needed for muscle spasm. Dispense twenty (20). No refills. Substitution is permissible. -- Ashok Mccarthy MD Ultram 50 mg tablets: take 1-2 orally every 6 hours as needed for pain. Dispense twenty (20). No refills. Substitution is permissible. -- Ashok Mccarthy MD
--- NOTE | 2016-04-14 20:25 | ED MAR SUMMARY ---
..... Medication Administration Record [facility] [address] [place] [address] Patient: SUMI THIBODEAUX Visit ID: [id number] 41y, F Weight: 52.1 kg Height/Length: 61 in BMI: 21.7 ALLERGIES: Hydrocodone Given 17:04/14/2016 Arnulfo Chinchilla RLydiaNLydia Medication Administered: TORADOL [IM] (KETOROLAC TROMETHAMINE), Dose: 60 mg IM. Medication Ordered: Toradol IM 60 mg (NOW). Given 17:04/14/2016 Arnulfo Chinchilla RLydiaNLydia Medication Administered: SOMA [PO] (CARISOPRODOL), Dose: 350 mg Capsules PO. Medication Ordered: Soma PO 350 mg (NOW). Given 17:04/14/2016 Anrulfo Chinchilla RLydiaNLydia Medication Administered: TRAMADOL [PO] (TRAMADOL HCL), Dose: 50 mg Capsules PO. Medication Ordered: Tramadol PO 50 mg (NOW).
--- NOTE | 2016-04-14 20:25 | ED DISCHARGE INSTRUCTIONS ---
Patient: SUMI THIBODEAUX General Instructions [facility] VisitID: [id number] [address] [place] [address] 41y, F Registration Date/Time: 04/14/2016 Acute right sided and left sided lumbar radiculopathy. No sensory loss or motor deficit. Acute on chronic low back pain. INSTRUCTIONS Limit lifting. No strenuous activity. Warnings: SEDATIVE MEDICATION: You were given sedative medication during your visit. Do not drive or operate dangerous machinery. Your Current Medications: CONTINUE TAKING THE FOLLOWING MEDICATIONS: Albuterol Sulfate HFA Inhalation. Asmanex 7 Metered Doses Inhalation. BusPIRone HCl Oral. Estridial patch*. Gabapentin Oral. Qvetiapine*. Prescription Medications: Ibuprofen 600mg tablets: take 1 tablet orally every 8 hours as needed for pain. Dispense thirty (30). No refills. Soma 350 mg: Take 1 orally every 6 hours as needed for muscle spasm. Dispense twenty (20). No refills. Substitution is permissible. Ultram 50 mg tablets: take 1-2 orally every 6 hours as needed for pain. Dispense twenty (20). No refills. Substitution is permissible. Follow-up: Follow up with your doctor in one week. Call for an appointment. Understanding of the discharge instructions verbalized by patient. ADDITIONAL INFORMATION Sciatica Sciatica ("Lumbar Radiculopathy") causes a pain that spreads from the lower back down into the buttock, hip and leg. Sometimes leg pain can occur without any back pain. Sciatica is due to irritation or pressure on a spinal nerve as it comes out of the spinal canal. This is most often due to a bulge or rupture of a nearby spinal disk (the cartilage cushion between each spinal bone), which presses on a nearby nerve. Other causes include spinal stenosis (narrowing of the spinal canal) and spasm of the pyriform muscle (a muscle in the buttocks that the sciatic nerve passes through). Sciatica may begin after a sudden twisting/bending force (such as in a car accident), or sometimes after a simple awkward movement. In either case, muscle spasm is commonly present and contributes to the pain. The diagnosis of sciatica is made from the symptoms and physical exam. Unless you had a physical injury (such as a car accident or fall), X-rays are usually not ordered for the initial evaluation of sciatica because the nerves and disks cannot be seen on an x-ray. If signs of a compressed nerve are present (for example, loss of tendon reflex or strength in the leg), an MRI (magnetic resonance imaging) scan will need to be scheduled as an outpatient. Most sciatica (80-90%) gets better with medicine, exercise, physical therapy. If symptoms continue after at least three months of medical treatment, surgery may be considered. Home Care: You may need to stay in bed the first few days. But, as soon as possible, begin sitting or walking to avoid problems with prolonged bed rest. When in bed, try to find a position of comfort. A firm mattress is best. Try lying flat on your back with pillows under your knees. You can also try lying on your side with your knees bent up towards your chest and a pillow between your knees. Avoid prolonged sitting. This puts more stress on the lower back than standing or walking. Some persons find relief with heat (hot shower, hot bath or heating pad) and massage, while others prefer cold packs (crushed or cubed ice in a plastic bag, wrapped in a towel). Try both and use the method that feels best for 20 minutes several times a day. You may use acetaminophen (Tylenol) or ibuprofen (Motrin, Advil) to control pain, unless another pain medicine was prescribed. [ NOTE: If you have chronic liver or kidney disease or ever had a stomach ulcer or GI bleeding, talk with your doctor before using these medicines.] Be aware of safe lifting methods and do not lift anything over 15 pounds until all the pain is gone. Follow Up with your doctor or this facility if your symptoms do not start to improve after one week. Physical therapy or further testing may be needed. [NOTE: If X-rays were taken, they will be reviewed by a radiologist. You will be notified of any new findings that may affect your care.] Get Prompt Medical Attention if any of the following occur: Pain becomes worse, not controlled by the prescribed medicine Weakness or numbness in one or both legs Numbness in the groin, genital area Loss of bowel or bladder control You have been given the following additional information: Back Pain W/ Sciatica Limit lifting. No strenuous activity. (Electronically signed by Ashok Mccarthy MD 04/14/2016 20:25)
--- NOTE | 2016-04-14 20:25 | ED MAR SUMMARY ---
..... Medication Administration Record [facility] [address] [place] [address] Patient: SUMI THIBODEAUX Visit ID: [id number] 41y, F Weight: 52.1 kg Height/Length: 61 in BMI: 21.7 ALLERGIES: Hydrocodone Given 17:04/14/2016 Arnulfo Chinchilla RLydiaNLydia Medication Administered: TORADOL [IM] (KETOROLAC TROMETHAMINE), Dose: 60 mg IM. Medication Ordered: Toradol IM 60 mg (NOW). Given 17:04/14/2016 Arnulfo Chinchilla RLydiaNLydia Medication Administered: SOMA [PO] (CARISOPRODOL), Dose: 350 mg Capsules PO. Medication Ordered: Soma PO 350 mg (NOW). Given 17:04/14/2016 Arnulfo Chinchilla RLydiaNLydia Medication Administered: TRAMADOL [PO] (TRAMADOL HCL), Dose: 50 mg Capsules PO. Medication Ordered: Tramadol PO 50 mg (NOW).
--- NOTE | 2016-04-14 20:25 | ED MED RECONCILIATION SUMMARY ---
Patient: SUMI THIBODEAUX Medication Reconciliation Report [facility] VisitID: [id number] [address] [place] [address] 41y, F Registration Date/Time: 04/14/2016 Weight: 52.1 kg Height/Length: 61 in. BMI: 21.7 ALLERGIES: Hydrocodone The patient's Home Medications are listed below: CONTINUE TAKING THE FOLLOWING MEDICATIONS: Albuterol Sulfate HFA Inhalation Asmanex 7 Metered Doses Inhalation BusPIRone HCl Oral Estridial patch Gabapentin Oral Qvetiapine The source(s) of the original Home Medication information: Not obtained. The following Medications were given to the patient in the Emergency Department: Toradol [IM] IM 60 mg, administered: 04/14/2016 5:32:00 PM Soma [PO] PO 350 mg, administered: 04/14/2016 5:32:00 PM Tramadol [PO] PO 50 mg, administered: 04/14/2016 5:33:00 PM The following Medications were prescribed to the patient: Ibuprofen 600mg tablets: take 1 tablet orally every 8 hours as needed for pain. Dispense thirty (30). No refills. -- Ashok Mccarthy MD Soma 350 mg: Take 1 orally every 6 hours as needed for muscle spasm. Dispense twenty (20). No refills. Substitution is permissible. -- Ashok Mccarthy MD Ultram 50 mg tablets: take 1-2 orally every 6 hours as needed for pain. Dispense twenty (20). No refills. Substitution is permissible. -- Ashok Mccarthy MD
== END ==
LOC: ED SRH 16:09
DX: M54.16 Radiculopathy, lumbar region (principal); G89.29 Other chronic pain; F17.210 Nicotine dependence, cigarettes, uncomplicated; Z88.5 Allergy status to narcotic agent
CPT/HCPCS: 90004; 90469; 92760; 92761; 92762; 92763; 92764; 92765; 92766; 92767

== ENCOUNTER 2016-06-28 12:20 | Emergency (ER) | payer OTHER ==
--- NOTE | 2016-06-28 14:32 | DIAGNOSTIC IMAGING REPORT ---
PROCEDURE: XR CERVICAL SPINE 2 OR 3 VIEW INDICATION: NECK PAIN TECHNIQUE: Three views. COMPARISON: None. FINDINGS: Osseous structures and disc spaces are normal. No evidence of an acute process or fracture. Loss of normal curvature indicates muscle spasm. IMPRESSION: 1. Negative cervical spine.
--- NOTE | 2016-06-28 14:33 | ED ORDER SUMMARY ---
..... Patient: SUMI THIBODEAUX OrderSheet [facility] VisitID: [id number] [address] [place] [address] 41y, F Registration Date/Time: 06/28/2016 ORDER SHEET Weight: 54.4 kg (stated) Allergies: Hydrocodone GENERAL ORDERS: Cervical Spine 2 or 3V Urgent (13:06/28/2016 David ELLSWORTH) (Ack 13:10 Atiya) (13:25 LNations ER Tech1) MEDICATION ORDERS: Toradol IM 60 mg (NOW) (13:06/28/2016 David ELLSWORTH) (Ack 13:11 JBoardley R.N.) (13:17 JBoardley R.N.) Ativan IM 1 mg (NOW) (13:06/28/2016 David ELLSWORTH) (Ack 13:11 JBoardley R.N.) (13:17 JBoardley R.N.) IV FLUIDS: ORDER SHEET NOTES: [Electronically signed by Lorne oMrgan R.N. (16:06/28/2016)] [Electronically signed by Ashok Mccarthy MD (10:19 06/29/2016)] [Electronically locked/signed by Lorne Morgan R.N. (16:06/28/2016)]
--- NOTE | 2016-06-28 14:33 | ED NURSING NOTES ---
Clinical Report - Nurses [facility] [address] [place] [address] 06/28/2016 12:22 Patient: SUMI THIBODEAUX TRIAGE Triage time 12:29. Acuity: LEVEL 4. Chief Complaint: NECK PAIN. 12:06/28/16. 12:06/28/16. Alert. ( Neck pain that started yesterday. Pt states she has budged disks in the cervical area). SEPSIS SCREEN: Sepsis Screen. Negative (no infection suspected/documented). YUVAL COMA SCORE: [place] Coma Scale: 15- eyes open spontaneously (4); best verbal response- oriented x 4 (5); best motor response- obeys commands (6). --12:34 Lorne Morgan R.N. 12:06/28/16. BP: 129/85. HR: 83. RR: 16. O2 saturation: 100% on room air. Temp: 98.2 F (oral). Pain level now: 11/28. --12:34 Lorne Morgan R.N. Weight: 54.4 kg stated. Height/Length: 59 inches Per Patient. BMI: 24.2. --12:29 Lorne Morgan R.N. Medications Albuterol Sulfate HFA Inhalation. Asmanex 7 Metered Doses Inhalation. BusPIRone HCl Oral. Estridial patch. Gabapentin Oral. Qvetiapine. --12:31 Lorne Morgan R.N. Medication/allergy information source: the patient. --12:34 Lorne Morgan R.N. Allergies Hydrocodone. --12:31 Lorne Morgan R.N. History Arrived by private vehicle. Historian: patient. Accompanied by family. Primary physician (MARGARETTE VITALE). 12:06/28/16. This started yesterday. No history of recent trauma. 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 (Percocet). PAST MEDICAL HX: Tetanus status: up-to-date. Immunizations: up-to-date. The patient has had a hysterectomy. SOCIAL HX: Current every day light tobacco smoker (cigarette)- less than 1/2 a pack per day. No alcohol use or drug use. No infectious disease exposure. ABUSE ASSESSMENT: No report of abuse. FALL RISK ASSESSMENT: Fall risk assessment completed. No fall risk identified. NUTRITIONAL RISK ASSESSMENT: The nutritional risk assessment revealed no deficiencies. FUNCTIONAL ASSESSMENT: Functional assessment: no impairments noted. LEARNING NEEDS ASSESSMENT: The learning needs assessment revealed no barriers. SKIN INTEGRITY ASSESSMENT: Skin integrity risk assessment completed. No skin integrity risk identified. --12:34 Lorne Morgan R.N. PROBLEMS: Lumbar Radiculopathy. Intervertebral Disc Disease. Carpal Tunnel Syndrome. Viral Disease. Abdominal Pain. Immunizations. Asthma. Mood Disorder. Depression. Back Pain. --12:31 Lorne Morgan R.N. ADDITIONAL SURGERIES: Hysterectomy. Left hand surgery . Tonsillectomy. Tympanostomy Tubes. --12:31 Lorne Morgan R.N. Assessment 12:06/28/16. --12:34 Lorne Morgan R.N. Interventions 12:06/28/16. 12:06/28/16. ID and allergy band on patient. To treatment room. --12:34 Lorne Morgan R.N. PHYSICAL ASSESSMENT 12:06/28/16. Ambulatory to room. GENERAL / NEURO / PSYCH: Appears in pain. RESPIRATORY: Respirations not labored. CVS: Capillary refill less than 2 seconds. EXTREMITIES: ROM of extremities within normal limits. BACK: Vertebral point tenderness over the cervical spine. --12:32 Lorne Morgan R.N. NURSING PROGRESS NOTES 12:06/28/16. The plan of care for this patient has been created. Head of bed elevated. Reassurance given. Call light placed in reach. Side rails up x 2. Bed placed in lowest position. Brakes of bed on. --12:32 Lorne Morgan R.N. 12:06/28/16. Patient ready for evaluation- chart flagged and notification provided. --12:32 Lorne Morgan R.N. 13:12 06/28/2016 Ativan (LORazepam) IM 1 mg given. Given in the left ventral gluteus. Allergies verified, confirmed 5 rights and sedative warning given to the patient. --13:17 Lorne Morgan R.N. 13:17 06/28/2016 Toradol (Ketorolac Tromethamine) IM 60 mg given. Given in the left ventral gluteus. Allergies verified and confirmed 5 rights. --13:17 Lorne Morgan R.N. 13:28 06/28/16. Reassessment after medication administered. She has had no adverse reaction. Patient informed about reason for wait and about plan of care. --13:28 Lorne Morgan R.N. 13:29 06/28/16. GENERAL / NEURO / PSYCH: Alert. Oriented X 4. RESPIRATORY: No respiratory distress. SKIN: Skin is warm and dry. --13:29 Lorne Morgan R.N. 14:06/28/16. Overall patient status is the same- she states feels the same. --14: Lorne Morgan R.N. 14:06/28/16. --14: Lorne Morgan R.N. 14:06/28/16. BP: 123/82. HR: 76. RR: 18. O2 saturation: 99% on room air. --14:01 Lorne Morgan R.N. ( soft collar placed.). --14:49 Marlene Glynn, [facility]. DISPOSITION / DISCHARGE 14:38 06/28/16. The goals identified in the patient's plan of care were met. No learning barriers present. Discharge instructions provided and reviewed with the patient. Reviewed warnings. Reviewed medication(s). Treatments reviewed. Patient verbalized understanding. Written instructions provided in Spanish. The patient was discharged by the physician. She was discharged home and accompanied by family. She left the Emergency Department ambulatory and via private vehicle. Family member driving. FALL RISK ASSESSMENT: Fall risk assessment completed. No fall risk identified. --14:38 Lorne Morgan R.N. 14:37 06/28/16. BP: 132/72. HR: 81. RR: 16. O2 saturation: 99% on room air. Temp: 98.1 F (oral). Pain level now: 04/28. --14:38 Lorne Morgan R.N. Departure time: 1445. --16:23 Lorne Morgan R.N. Locked/Released at 06/28/2016 16:25 by Lorne Morgan R.N.
--- NOTE | 2016-06-28 14:33 | ED NURSING NOTES ---
Clinical Report - Nurses [facility] [address] [place] [place] [address] 06/28/2016 12:22 Patient: SUMI THIBODEAUX TRIAGE Triage time 12:29. Acuity: LEVEL 4. Chief Complaint: NECK PAIN. 12:06/28/16. 12:06/28/16. Alert. ( Neck pain that started yesterday. Pt states she has budged disks in the cervical area). SEPSIS SCREEN: Sepsis Screen. Negative (no infection suspected/documented). YUVAL COMA SCORE: [place] Coma Scale: 15- eyes open spontaneously (4); best verbal response- oriented x 4 (5); best motor response- obeys commands (6). --12:34 Lorne Morgan R.N. 12:06/28/16. BP: 129/85. HR: 83. RR: 16. O2 saturation: 100% on room air. Temp: 98.2 F (oral). Pain level now: 11/28. --12:34 Lorne Morgan R.N. Weight: 54.4 kg stated. Height/Length: 59 inches Per Patient. BMI: 24.2. --12:29 Lorne Morgan R.N. Medications Albuterol Sulfate HFA Inhalation. Asmanex 7 Metered Doses Inhalation. BusPIRone HCl Oral. Estridial patch. Gabapentin Oral. Qvetiapine. --12:31 Lorne Morgan R.N. Medication/allergy information source: the patient. --12:34 Lorne Morgan R.N. Allergies Hydrocodone. --12:31 Lorne Morgan R.N. History Arrived by private vehicle. Historian: patient. Accompanied by family. Primary physician (MARGARETTE VITALE). 12:06/28/16. This started yesterday. No history of recent trauma. 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 (Percocet). PAST MEDICAL HX: Tetanus status: up-to-date. Immunizations: up-to-date. The patient has had a hysterectomy. SOCIAL HX: Current every day light tobacco smoker (cigarette)- less than 1/2 a pack per day. No alcohol use or drug use. No infectious disease exposure. ABUSE ASSESSMENT: No report of abuse. FALL RISK ASSESSMENT: Fall risk assessment completed. No fall risk identified. NUTRITIONAL RISK ASSESSMENT: The nutritional risk assessment revealed no deficiencies. FUNCTIONAL ASSESSMENT: Functional assessment: no impairments noted. LEARNING NEEDS ASSESSMENT: The learning needs assessment revealed no barriers. SKIN INTEGRITY ASSESSMENT: Skin integrity risk assessment completed. No skin integrity risk identified. --12:34 Lorne Morgan R.N. PROBLEMS: Lumbar Radiculopathy. Intervertebral Disc Disease. Carpal Tunnel Syndrome. Viral Disease. Abdominal Pain. Immunizations. Asthma. Mood Disorder. Depression. Back Pain. --12:31 Lorne Morgan R.N. ADDITIONAL SURGERIES: Hysterectomy. Left hand surgery . Tonsillectomy. Tympanostomy Tubes. --12:31 Lorne Morgan R.N. Assessment 12:06/28/16. --12:34 Lorne Morgan R.N. Interventions 12:06/28/16. 12:06/28/16. ID and allergy band on patient. To treatment room. --12:34 Lorne Morgan R.N. PHYSICAL ASSESSMENT 12:06/28/16. Ambulatory to room. GENERAL / NEURO / PSYCH: Appears in pain. RESPIRATORY: Respirations not labored. CVS: Capillary refill less than 2 seconds. EXTREMITIES: ROM of extremities within normal limits. BACK: Vertebral point tenderness over the cervical spine. --12:32 Lorne Morgan R.N. NURSING PROGRESS NOTES 12:06/28/16. The plan of care for this patient has been created. Head of bed elevated. Reassurance given. Call light placed in reach. Side rails up x 2. Bed placed in lowest position. Brakes of bed on. --12:32 Lorne Morgan R.N. 12:06/28/16. Patient ready for evaluation- chart flagged and notification provided. --12:32 Lorne Morgan R.N. 13:12 06/28/2016 Ativan (LORazepam) IM 1 mg given. Given in the left ventral gluteus. Allergies verified, confirmed 5 rights and sedative warning given to the patient. --13:17 Lorne Morgan R.N. 13:17 06/28/2016 Toradol (Ketorolac Tromethamine) IM 60 mg given. Given in the left ventral gluteus. Allergies verified and confirmed 5 rights. --13:17 Lorne Morgan R.N. 13:28 06/28/16. Reassessment after medication administered. She has had no adverse reaction. Patient informed about reason for wait and about plan of care. --13:28 Lorne Morgan R.N. 13:29 06/28/16. GENERAL / NEURO / PSYCH: Alert. Oriented X 4. RESPIRATORY: No respiratory distress. SKIN: Skin is warm and dry. --13:29 Lorne Morgan R.N. 14:06/28/16. Overall patient status is the same- she states feels the same. --14: Lorne Morgan R.N. 14:06/28/16. --14: Lorne Morgan R.N. 14:06/28/16. BP: 123/82. HR: 76. RR: 18. O2 saturation: 99% on room air. --14:01 Lorne Morgan R.N. ( soft collar placed.). --14:49 Marlene Glynn, [facility]1. DISPOSITION / DISCHARGE 14:38 06/28/16. The goals identified in the patient's plan of care were met. No learning barriers present. Discharge instructions provided and reviewed with the patient. Reviewed warnings. Reviewed medication(s). Treatments reviewed. Patient verbalized understanding. Written instructions provided in Syriac. The patient was discharged by the physician. She was discharged home and accompanied by family. She left the Emergency Department ambulatory and via private vehicle. Family member driving. FALL RISK ASSESSMENT: Fall risk assessment completed. No fall risk identified. --14:38 Lorne Morgan R.N. 14:37 06/28/16. BP: 132/72. HR: 81. RR: 16. O2 saturation: 99% on room air. Temp: 98.1 F (oral). Pain level now: 04/28. --14:38 Lorne Morgan R.N. Departure time: 1445. --16:23 Lorne Morgan R.N. Locked/Released at 06/28/2016 16:25 by Lorne Morgan R.N.
--- NOTE | 2016-06-28 14:33 | ED ORDER SUMMARY ---
..... Patient: SUMI THIBODEAUX OrderSheet [facility] VisitID: [id number] [address] [place] [address] 41y, F Registration Date/Time: 06/28/2016 ORDER SHEET Weight: 54.4 kg (stated) Allergies: Hydrocodone GENERAL ORDERS: Cervical Spine 2 or 3V Urgent (13:06/28/2016 David ELLSWORTH) (Ack 13:10 Atiya) (13:25 LNations ER Tech1) MEDICATION ORDERS: Toradol IM 60 mg (NOW) (13:06/28/2016 David ELLSWORTH) (Ack 13:11 JBoardley R.N.) (13:17 JBoardley R.N.) Ativan IM 1 mg (NOW) (13:06/28/2016 David ELLSWORTH) (Ack 13:11 JBoardley R.N.) (13:17 JBoardley R.N.) IV FLUIDS: ORDER SHEET NOTES: [Electronically signed by Lorne Morgan R.N. (16:06/28/2016)] [Electronically signed by Ashok Mccarthy MD (10:19 06/29/2016)] [Electronically locked/signed by Lorne Morgan R.N. (16:06/28/2016)]
--- NOTE | 2016-06-28 14:33 | ED CLINICAL REPORT ---
Clinical Report - Physicians/Mid Levels [facility] [address] [place] [address] 06/28/2016 12:22 Patient: SUMI THIBODEAUX Time Seen: 13:02 Jun 28 2016. Arrived- By private vehicle. Historian- patient. CPT: ER phys charges level 4 (#[id number]). HISTORY OF PRESENT ILLNESS Chief Complaint: NECK PAIN. Modifying factors- worsened by rotation of the head or neck flexion. Not relieved by anything. Onset was yesterday Woke up with it in pain. and it is still present. It is described as being moderate in degree and in the area of the cervical spine. The quality is noted to be sharp, aching and "pain". No bladder dysfunction, bowel dysfunction, sensory loss or motor loss. Patient denies an injury. No other injury. Similar symptoms previously: Milder. Recent medical care: Not recently seen/assessed. REVIEW OF SYSTEMS No fever, chills, headache, sore throat or cough. No difficulty breathing, chest pain, skin rash, abdominal pain or nausea. No vomiting or diarrhea. All systems otherwise negative, except as recorded above. PAST HISTORY Lumbar Radiculopathy. Intervertebral Disc Disease. Carpal Tunnel Syndrome. Viral Disease. Abdominal Pain. Immunizations. Asthma. Mood Disorder. Depression. Back Pain. --12:31 Lorne Morgan R.N. ADDITIONAL SURGERIES: Hysterectomy. Left hand surgery . Tonsillectomy. Tympanostomy Tubes. Medications: Albuterol Sulfate HFA Inhalation. Asmanex 7 Metered Doses Inhalation. BusPIRone HCl Oral. Estridial patch. Gabapentin Oral. Qvetiapine. Allergies: Hydrocodone. SOCIAL HISTORY Light tobacco smoker (cigarette)- less than 1/2 a pack per day. No alcohol use or drug use. ADDITIONAL NOTES The nursing notes have been reviewed. PHYSICAL EXAM Vital Signs: 06/28/2016 12:29 BP: 129/85. HR: 83. RR: 16. O2 saturation: 100%. Temp: 98.2 F. Pain level now: 11/28. Appearance: Alert. Appears to be in pain. Patient in moderate distress. HEENT: Normal external inspection. ENT: Pharynx normal. Neck: Pain in the neck upon movement. Muscle spasm of the neck. Decrease in ROM. No vertebral tenderness. Soft tissue tenderness. No lymphadenopathy or meningeal signs. CVS: Normal heart rate and rhythm. Heart sounds normal. Pulses normal. Respiratory: No respiratory distress. Breath sounds normal. Chest nontender. Abdomen: Normal inspection. Soft and nontender. Back: Normal inspection. Skin: Normal skin color. No rash. Extremities: Extremities exhibit normal ROM. Extremities nontender. Neuro: Oriented X 3. Mood/affect normal. No motor deficit. No sensory deficit. Reflexes normal. Reflex exam: right biceps 2+, left biceps 2+, right patellar 2+, left patellar 2+, right Achilles 1+ and left Achilles 1+. DTRs otherwise normal. No clonus present. LABS, X-RAYS, AND EKG C-Spine X-rays: Mild degenerative joint disease. Views: 3 view C-spine series. Technique: good. The X-rays were independently viewed by me and interpreted contemporaneously by me. PROGRESS AND PROCEDURES Course of Care: Toradol 60 mg IM Ativan 1 mg IM Patient is stable. Symptoms better. Patient/family counseled. Disposition: Discharged. Condition: stable. CLINICAL IMPRESSION Acute exacerbation of chronic neck pain. INSTRUCTIONS Wear soft neck collar until released (wear at night also.). Apply moist heat for 15-20 minutes three times a day for five days until better. Limit lifting. No strenuous activity. Warnings: SEDATIVE MEDICATION: You were given sedative medication during your visit. Do not drive or operate dangerous machinery. Your Current Medications: CONTINUE TAKING THE FOLLOWING MEDICATIONS: Albuterol Sulfate HFA Inhalation. Asmanex 7 Metered Doses Inhalation. BusPIRone HCl Oral. Estridial patch*. Gabapentin Oral. Qvetiapine*. Prescription Medications: Ibuprofen 600mg tablets: take 1 tablet orally every 8 hours as needed for pain. Dispense thirty (30). No refills. Soma 350 mg: Take 1 orally every 6 hours as needed for muscle spasm. Dispense twenty (20). No refills. Substitution is permissible. Ultram 50 mg tablets: take 1-2 orally every 6 hours as needed for pain. Dispense twenty (20). No refills. Substitution is permissible. Follow-up: Follow up with your doctor. Call for the next available appointment. Understanding of the discharge instructions verbalized by patient. (Electronically signed by Ashok Mccarthy MD 06/29/2016 10:19)
--- NOTE | 2016-06-29 10:19 | ED MED RECONCILIATION SUMMARY ---
Patient: SUMI THIBODEAUX Medication Reconciliation Report [facility] VisitID: [id number] [address] [place] [address] 41y, F Registration Date/Time: 06/28/2016 Weight: 54.4 kg Height/Length: 59 in. BMI: 24.2 ALLERGIES: Hydrocodone The patient's Home Medications are listed below: CONTINUE TAKING THE FOLLOWING MEDICATIONS: Albuterol Sulfate HFA Inhalation Asmanex 7 Metered Doses Inhalation BusPIRone HCl Oral Estridial patch Gabapentin Oral Qvetiapine The source(s) of the original Home Medication information: patient The following Medications were given to the patient in the Emergency Department: Toradol [IM] IM 60 mg, administered: 06/28/2016 1:17:00 PM Ativan [IM] IM 1 mg, administered: 06/28/2016 1:12:00 PM The following Medications were prescribed to the patient: Ibuprofen 600mg tablets: take 1 tablet orally every 8 hours as needed for pain. Dispense thirty (30). No refills. -- Ashok Mccarthy MD Soma 350 mg: Take 1 orally every 6 hours as needed for muscle spasm. Dispense twenty (20). No refills. Substitution is permissible. -- Ashok Mccarthy MD Ultram 50 mg tablets: take 1-2 orally every 6 hours as needed for pain. Dispense twenty (20). No refills. Substitution is permissible. -- Ashok Mccarthy MD
--- NOTE | 2016-06-29 10:19 | ED MAR SUMMARY ---
..... Medication Administration Record [facility] [address] [place] [address] Patient: SUMI THIBODEAUX Visit ID: [id number] 41y, F Weight: 54.4 kg Height/Length: 59 in BMI: 24.2 ALLERGIES: Hydrocodone Given 13:12 06/28/2016 Lorne Morgan R.N. Medication Administered: ATIVAN [IM] (LORAZEPAM), Dose: 1 mg IM. Medication Ordered: Ativan IM 1 mg (NOW). Given 13:17 06/28/2016 Lorne Mogran R.N. Medication Administered: TORADOL [IM] (KETOROLAC TROMETHAMINE), Dose: 60 mg IM. Medication Ordered: Toradol IM 60 mg (NOW).
--- NOTE | 2016-06-29 10:19 | ED MAR SUMMARY ---
..... Medication Administration Record [facility] [address] [place] [address] Patient: SUMI THIBODEAUX Visit ID: [id number] 41y, F Weight: 54.4 kg Height/Length: 59 in BMI: 24.2 ALLERGIES: Hydrocodone Given 13:12 06/28/2016 Lorne Morgan R.N. Medication Administered: ATIVAN [IM] (LORAZEPAM), Dose: 1 mg IM. Medication Ordered: Ativan IM 1 mg (NOW). Given 13:17 06/28/2016 Lorne Morgan R.N. Medication Administered: TORADOL [IM] (KETOROLAC TROMETHAMINE), Dose: 60 mg IM. Medication Ordered: Toradol IM 60 mg (NOW).
--- NOTE | 2016-06-29 10:19 | ED MED RECONCILIATION SUMMARY ---
Patient: SUMI THIBODEAUX Medication Reconciliation Report [facility] VisitID: [id number] [address] [place] [address] 41y, F Registration Date/Time: 06/28/2016 Weight: 54.4 kg Height/Length: 59 in. BMI: 24.2 ALLERGIES: Hydrocodone The patient's Home Medications are listed below: CONTINUE TAKING THE FOLLOWING MEDICATIONS: Albuterol Sulfate HFA Inhalation Asmanex 7 Metered Doses Inhalation BusPIRone HCl Oral Estridial patch Gabapentin Oral Qvetiapine The source(s) of the original Home Medication information: patient The following Medications were given to the patient in the Emergency Department: Toradol [IM] IM 60 mg, administered: 06/28/2016 1:17:00 PM Ativan [IM] IM 1 mg, administered: 06/28/2016 1:12:00 PM The following Medications were prescribed to the patient: Ibuprofen 600mg tablets: take 1 tablet orally every 8 hours as needed for pain. Dispense thirty (30). No refills. -- Ashok Mccarthy MD Soma 350 mg: Take 1 orally every 6 hours as needed for muscle spasm. Dispense twenty (20). No refills. Substitution is permissible. -- Ashok Mccarthy MD Ultram 50 mg tablets: take 1-2 orally every 6 hours as needed for pain. Dispense twenty (20). No refills. Substitution is permissible. -- Ashok Mccarthy MD
--- NOTE | 2016-06-29 10:19 | ED DISCHARGE INSTRUCTIONS ---
Patient: SUMI THIBODEAUX General Instructions [facility] VisitID: [id number] [address] [place] [address] 41y, F Registration Date/Time: 06/28/2016 Acute exacerbation of chronic neck pain. INSTRUCTIONS Wear soft neck collar until released (wear at night also.). Apply moist heat for 15-20 minutes three times a day for five days until better. Limit lifting. No strenuous activity. Warnings: SEDATIVE MEDICATION: You were given sedative medication during your visit. Do not drive or operate dangerous machinery. Your Current Medications: CONTINUE TAKING THE FOLLOWING MEDICATIONS: Albuterol Sulfate HFA Inhalation. Asmanex 7 Metered Doses Inhalation. BusPIRone HCl Oral. Estridial patch*. Gabapentin Oral. Qvetiapine*. Prescription Medications: Ibuprofen 600mg tablets: take 1 tablet orally every 8 hours as needed for pain. Dispense thirty (30). No refills. Soma 350 mg: Take 1 orally every 6 hours as needed for muscle spasm. Dispense twenty (20). No refills. Substitution is permissible. Ultram 50 mg tablets: take 1-2 orally every 6 hours as needed for pain. Dispense twenty (20). No refills. Substitution is permissible. Follow-up: Follow up with your doctor. Call for the next available appointment. Understanding of the discharge instructions verbalized by patient. ADDITIONAL INFORMATION Cervical Collar A cervical collar is used to provide support and limit movement of the neck. It is usually provided after a moderate to severe neck sprain. Home Use: Unless told otherwise, the collar should be worn whenever you are out of bed. It may be taken off for sleep and for bathing. When lying down, support your neck with a small pillow or rolled up towel under the neck. When adjusting your pillows, try to keep the neck in a neutral position (in line with the upper back). Pillows should not be so thick as to bend your head forward. Do not wear the collar longer than advised by your doctor. This may lead to further stiffness from lack of neck movement. Get Prompt Medical Attention if any of the following occur: Increasing pain in the neck Weakness or numbness in the arms or hands Pain spreading from the neck into the shoulder or arms Fever of 100.4F(38C) or higher, or as directed by your healthcare provider You have been given the following additional information: Cervical Collar Limit lifting. No strenuous activity. (Electronically signed by Ashok Mccarthy MD 06/29/2016 10:19)
== END 2016-06-28 14:45 | disposition home or self-care (01) ==
LOC: ED SRH 12:20
DX: G89.29 Other chronic pain (principal); M54.2 Cervicalgia; F17.200 Nicotine dependence, unspecified, uncomplicated; Z88.5 Allergy status to narcotic agent